=== PATIENT | male | born 1965 | race Caucasian/White ===

== ENCOUNTER → 2016-07-08 | Outpatient (CLI) | payer BC ==
[~2016-07-08] MED LIST: CYCL10TA45 PO; HYDR-3702 PO; SIMV40TA PO
--- NOTE | 2016-07-08 16:03 | Diagnostic Imaging Report ---
INDICATION: Left tib-fib contusion. Pain. FINDINGS: AP and lateral views of the left tibia and fibula show no fracture, dislocation or other acute bony abnormality. There are degenerative changes at the knee and ankle. IMPRESSION: No acute abnormality is seen. Dictated by: Dictated on workstation # [id number]
== END ==
LOC: RAD 15:10
PROVIDERS: ATTEND Family Medicine
DX: S80.12XA Contusion of left lower leg, initial encounter (principal); X58.XXXA Exposure to other specified factors, initial encounter
CPT/HCPCS: 73590